=== PATIENT | female | born 1990 | race Caucasian/White ===

== ENCOUNTER 2020-06-07 16:46 | Emergency (ER) | payer MEDICAID, SELFPAY ==
[2020-06-07 16:47] VITALS: PULSE 89; RESP 20; TEMP 36.6; BMI 21.6
[2020-06-07 17:25] VITALS: PULSE 89; RESP 20; TEMP 36.6; O2SAT 97; BMI 21.7
--- NOTE | 2020-06-07 17:46 | HMH.EDUTC ---
[facility] Disposition Clinical Impression: Laceration Disposition: Home, Self-Care Condition on Discharge: Good Instructions: How to Care for a Laceration After Repair, Laceration Repair, DI for Laceration Repair -- Simple Additional Instructions: Suture instructions: You have required stitches today. Please read the following instructions so you know how to care for them: 1. Keep wound area dry for the first 24 hours. 2 May clean gently with mild soap and water, after 48 hours to prevent crusting over suture knots. 3. You may shower if your provider gives permission but do not take a bath until the skin is healed.. 4. Never leave a wet dressing or Band-Aid on your stitches as this allows bacteria to reach the area and may cause infection. Band-aids can cause the wound to sweat and not recommended to wear for long periods of time Watch for signs of infection: Increasing redness, tenderness or warmth around the suture site Unusual swelling around the site Appearance of pus around each suture or any red streaks Fever If you develop any of the above signs or symptoms of infection, Follow up with Family Physician immediately 5. Suture removal in _7-10___days 6. Return to [facility] or follow up with family doctor for removal. This can be done by any medical provider during regular hours on Thursday through Thursday, by appointment. Prescriptions: Amoxicillin/Potassium Clav [Augmentin 875-125 Tablet] 1 tab PO Q12H 5 Days #10 tab Transmission Status: Pending to [facility]/pharmacy #[id number] Referrals: Burton Germain MD [Primary Care Provider] - As needed Time of Disposition: 17:54 Medical Decision Making - Keron Inquiry Pt receiving controlled substance: No Keron was queried for this patient: No Vital Signs: 06/07/20 16:47 06/07/20 17:25 Temperature 97.9 F 97.9 F Temperature Source Oral Oral Pulse Rate [Radial] 89 89 Respiratory Rate 20 20 02 Sat by Pulse Oximetry 97 Oxygen Delivery Method Room Air [facility] HPI - General Stated complaint: AO 06/07 @ 1630 Lac to left index finger Time Seen by Provider: 06/07/20 17:46 Mode of Arrival: Ambulatory Source of Information: Patient Limitations: No Limitations Description of Symptoms (Recalled from Triage Doc. by RN): PATIENT C/O LACERATION TO LEFT INDEX FINGER. 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 STATES SHE IS UP TO DATE ON TETANUS VACCINE HEENT Symptoms (Recalled from RN notes): No Resp Symptoms (Recalled from RN notes): No Skin Symptoms (Recalled from RN notes): Yes MS Symptoms (Recalled from RN notes): No Functional Status (Recalled from RN notes): WNL - History of Present Illness Provider Complaint: Patient states that she was handling some metal siding when it slipped and caused laceration to the tip of her left index finger States that she immediatly applied pressure and cleaned the wound and came in to have it checked no active bleeding at this time States that she recently had tetanus shot - Related Data Previous Rx's Medication Instructions Recorded Amoxicillin/Potassium Clav 1 tab PO Q12H 5 Days #10 tab 06/07/20 [Augmentin 875-125 Tablet] Allergies Allergy/AdvReac Type Severity Reaction Status Date / Time No Known Allergies Allergy Verified 06/07/20 17:37 - Worker's Comp Is this a Worker's Comp case?: No [facility] History - Hepatitis A Screen Drug use history?: No High risk sexual behaviors?: No History of sexually transmitted infection?: No Currently employed?: No Childcare worker?: No Do you have indoor plumbing?: Yes Do you have electricity?: Yes Attestation statement:: This patient has been screened for Hepatitis A risk factors. I have reviewed the patient's past medical history: Yes - Social History Alcohol Intake: never Occupational Status: other ROS Obtained: Yes All systems reviewed & no additional complaints, Yes Systems reviewed as appropriate & no additional complaints - Constitutional Constitutional: R
[2020-06-07 18:26] VITALS: BP 00/00; PULSE 89; RESP 20; TEMP 36.6; O2SAT 97
== END 2020-06-07 18:35 | disposition home or self-care (01) ==
PROVIDERS: Emergency Provider Nurse Practitioner; PCP Family Medicine
DX: S61.211A Laceration without foreign body of left index finger without damage to nail, initial encounter (principal); W26.8XXA Contact with other sharp object(s), not elsewhere classified, initial encounter; Y92.89 Other specified places as the place of occurrence of the external cause
CPT/HCPCS: 12001; 99202; G0463